=== PATIENT | female | born 2000 | race Two or more races ===

== ENCOUNTER 2024-11-25 00:12 | Emergency (ER) | payer MEDICAID, SELFPAY ==
[2024-11-25 00:13] VITALS: BMI 29.2
[2024-11-25 00:21] VITALS: BP 125/89; PULSE 74; RESP 18; TEMP 36.8; O2SAT 97
--- NOTE | 2024-11-25 00:26 | EDNOTE_ITS ---
ED Eye Problem RME/HPI General Chief complaint: Eye Problems Stated complaint: LEFT EYE REDNESS Time Seen by Provider: 11/25/24 00:22 Source: patient, RN notes reviewed and old records reviewed Arrival date/time: 11/25/24 00:12 Mode of arrival: ambulatory Limitations: no limitations RME / HPI RME / HPI Narrative: 24yof presents to ED for left eye redness with drainage since yesterday. Daughter was diagnosed with pink eye 2 days ago. No fever, congestion, eye pain, headache or vision changes reported. Patient tried Zaditor drops yesterday without relief. Related Data Home Medications ?Medication ?Instructions ?Recorded ?Confirmed vitamin-ferrous fumarate 1 tab PO QDAY 08/10/21 28 mg iron-folic acid 800 mcg tablet ( Vitamins with Minerals) Previous Rx's ?Medication ?Instructions ?Recorded polymyxin B sulfate 10,000 1 drp ophthalmic (eye) Q3H 7 days 11/25/24 unit-trimethoprim 1 mg/mL eye drops #10 mL Allergies Allergy/AdvReac Type Severity Reaction Status Date / Time No Known Allergies Allergy Unverified 08/15/21 13:47 Review of Systems Review of Systems Systems Reviewed: All systems reviewed, normal except as documented Constitutional Constitutional: Denies chills, Denies fever(s) and Denies headache(s) Eyes Eyes: Denies blurry vision, Reports eye discharge and Denies eye pain Comments: Reports redness ENT Ears, Nose, Mouth, and Throat: Denies headache(s) and Denies nasal congestion Neurologic Neurologic: Denies headache(s) Past Medical History Surgical History OTHER SURGICAL HX: denies pshx Social History SMOKING STATUS: Never smoker SUBSTANCE USE: does not use ALCOHOL: Never Past Medical History Comments PMH COMMENT: denies pmhx ED Exam General Limitations: Present no limitations General appearance: Present alert and in no apparent distress Head Head exam: Present atraumatic and normocephalic Eye Eye exam: Present PERRL, EOMI and conjunctival injection (Left with green discharge); Absent periorbital swelling or periorbital tenderness ENT ENT exam: Present normal exam and mucous membranes moist Neck Neck exam: Present normal inspection and full ROM Chest Chest inspection: Present normal inspection and symmetric chest wall rise Respiratory Respiratory exam: Present normal lung sounds bilaterally; Absent respiratory distress Cardiovascular Cardiovascular exam: Present regular rate and normal rhythm Extremities Exam Extremities exam: Present normal inspection and full ROM Neurological Exam Neurological exam: Present alert and oriented X3 Psychiatric Psychiatric exam: Present normal affect and normal mood Skin Skin exam: Present warm, dry, intact and normal color Course Quality Measures none Vital Signs Vital signs: Vital Signs Temperature 98.2 F 11/25/24 00:21 Pulse Rate 74 11/25/24 00:21 Respiratory Rate 18 11/25/24 00:21 Blood Pressure 125/89 H 11/25/24 00:21 Pulse Oximetry (%) 97 11/25/24 00:21 Oxygen Delivery Method Room Air 11/25/24 00:21 Eye MDM Narrative MDM Narrative:: 24yof presents to ED for left eye redness with drainage since yesterday. Daughter was diagnosed with pink eye 2 days ago. No fever, congestion, eye pain, headache or vision changes reported. Patient tried Zaditor drops yesterday without relief. Will treat for bacterial conjunctivitis. Encouraged cool compresses. Stable for discharge, RTED precautions given. Patient data External records reviewed:: [facility] previous records (Admit 08/15/2021 for labor and delivery) Clinical information provided by:: patient Social determinants that could affect healthcare access:: none Patient has the following chronic illnesses:: None How is presenting disease/condition affected by chronic disease/condition?: no chronic disease Evaluation data The following diagnostics were reviewed and interpreted by me:: other (specify) (None) Lab and/or radiology exams considered but not ordered:: CT orbits: No history of trauma Interpretation Summary: na Medications / Prescriptions Medications or Prescriptions considered but not ordered:: None Medication administrations:: None Consultations Consultation(s) initiated? (list below): No Diagnosis Eye Problem Differential Diagnosis: corneal abrasion, conjunctivitis, acute iritis, periorbital cellulitis, subconjunctival hemorrhage and corneal ulcer Most likely diagnosis given after review of the tests above:: Bacterial conjunctivitis Admission Indicated Admission indicated?: not indicated Admission Request Was there a request for admission?: No Disposition Plan Disposition Plan: Discharge Discharge Attestation Discharge Attestation: The patient and all family members were given an opportunity to ask questions and understood the discharge instructions. Discharge instructions specifically effects, indications for sooner follow up or return to the emergency department, and the expected course of current diagnosis. Patient condition: Stable Discharge Plan Plan Patient Disposition: HOME (Self Care) Patient condition on transfer: Stable Prescriptions/Referrals Prescriptions/Med Rec: New polymyxin B sulf-trimethoprim 10,000 unit- 1 mg/mL drops 1 drp ophthalmic (eye) Q3H 7 Days Qty: 10 0RF Rx Instructions: while awake; do not exceed 6 doses in 24 hours No Action vit-iron fum-folic ac [ Vitamin with Minerals] 28 mg iron- 800 mcg Tablet 1 tab PO QDAY Problem List Clinical Impression: Bacterial conjunctivitis of left eye Patient/Caregiver Discharge Instructions Education Materials: ED Conjunctivitis, Bacterial Print Language: [place] Island[place] Stand Alone Forms: Krissy Award Info., Work/School Release, Patient Portal Info Letter PA/BRAKE OPERATOR [employer] Supervising Physician PA/BRAKE OPERATOR [employer] Supervising Physician: Prabhakar
== END 2024-11-25 00:42 | disposition home or self-care (01) ==
LOC: SERX 00:48
PROVIDERS: Emergency Provider Emergency Medicine; PCP Family Medicine
DX: H10.89 Other conjunctivitis (principal)
CPT/HCPCS: 99281